=== PATIENT | male | born 2000 | race Hispanic/Latino ===

== ENCOUNTER 2025-09-19 09:21 | Emergency (ER) | payer OTHER ==
[~2025-09-19] VITALS: Ht 175.3 cm; Wt 103.0 kg
[2025-09-19] MEDS: ACETAMINOPHEN 325 MG TAB PO ONE ×2 (09:44→12:35)
[2025-09-19 09:46] LABS: BASO # 0.0 10^3/uL (0.0-0.2); BASO % 0.3 % (0.0-1.0); EOS # 0.0 10^3/uL (0.0-0.5); EOS % 0.5 % (0.0-3.0); LYMPH # 1.1 10^3/uL (1.5-5.0); LYMPH % 12.6 % (24.0-44.0); MONO # 1.1 10^3/uL (0.0-0.8); MONO % 12.6 % (2.0-8.0); NEUTROPHILS # 6.3 10^3/uL (1.5-8.5); NEUTROPHILS % 73.4 % (36.0-66.0); PLATELET COUNT, AUTOMATED 183 10^3/uL (150-450)
[2025-09-19 10:13] LABS: CALCIUM LEVEL 9.2 MG/DL (8.5-10.1); CARBON DIOXIDE LEVEL 30 MMOL/L (20-31); CHLORIDE LEVEL 99 MMOL/L (98-107); CREATININE FOR GFR 0.92 MG/DL (0.70-1.30); GLOMERULAR FILTRATION RATE > 90.0 (>60); POTASSIUM SERUM 4.1 MMOL/L (3.5-5.1); SODIUM LEVEL 138 MMOL/L (136-145)
[2025-09-19] MEDS: IBUPROFEN 800 MG TAB PO ONE (11:12)
[2025-09-19] MEDS: NS (Normal Saline) 0.9% 1,000 ML IV ONE (12:36)
[2025-09-19 13:00] VITALS: BP 112/63; O2SAT 97
[2025-09-19 13:17] VITALS: TEMP 99.6
== END 2025-09-19 13:29 | disposition home or self-care (01) ==
LOC: M ED 09:21
DX: R50.9 Fever, unspecified (principal); B34.1 Enterovirus infection, unspecified